=== PATIENT | male | born 1970 | race Caucasian/White ===

== ENCOUNTER 2020-08-01 05:55 | Day surgery (SDC) | payer BC, OTHER ==
[~2020-08-01 05:55] MED LIST: Lactated Ringers 1,000 ML IV SCH; Lidocaine 1%/Sod Bicarbonate in NS 8.4% 1 ML Syringe IDERM PRN; Sodium Chloride 0.9% 10 ML Syringe FLUSH PRN
[2020-08-01] MEDS ORDERED: oxyCODONE ER 10 MG TAB.ER PO SCH (06:00)
[2020-08-01] MEDS ORDERED: Acetaminophen 325 MG Tab PO SCH (06:00)
[2020-08-01] MEDS ORDERED: Morphine 8 MG, EPINEPHrine 0.3 MG, Cefuroxime 750 MG, Ketorolac 30 MG, Sodium Chloride ... PRN ×5 (06:00)
[2020-08-01] MEDS ORDERED: Pregabalin 25 MG Cap PO SCH (06:00)
[2020-08-01] MEDS ORDERED: Bupivacaine 0.25% 10 ML SDV ONE (06:23)
[2020-08-01] MEDS ORDERED: Scopolamine 1.5 MG Transdermal Patch TRDERM SCH (06:45)
--- NOTE | 2020-08-01 06:45 | PCM.PREANE ---
Preanesthetic Assessment - Procedure Proposed Procedure: Right TKA - Anesthesia/Transfusion/Family Hx Anesthesia History: Prior Anesthesia Without Reaction Family History of Anesthesia Reaction: No Transfusion History: No Prior Transfusion(s) - Review of Systems General: No Symptoms Pulmonary: No Symptoms, Other (CPAP) Cardiovascular: Dyspnea on Exertion Gastrointestinal: No Symptoms Neurological: Headache ("not current but suffersm from migraines"), Numbness (hands and feet), Weakness Other: Reports: None - Physical Assessment NPO Status Date: 07/31/20 NPO Status Time: 00:00 Height: 1.8 m Weight: 122.7 kg ASA Class: 3 Mental Status: Alert & Oriented x3 Airway Class: Mallampati = 2 Dentition: Reports: Normal Dentition, Caries Thyro-Mental Finger Breadths: 2 Mouth Opening Finger Breadths: 2 ROM/Head Extension: Full Lungs: Clear to Auscultation, Normal Respiratory Effort Cardiovascular: Regular Rate, Regular Rhythm - Lab Values: Laboratory Last Values MRSA (PCR) Negative 07/14/20 15:24 - Imaging/EKG Impressions: EKG SR rate 63 - Allergies Allergies/Adverse Reactions: Allergies Allergy/AdvReac Type Severity Reaction Status Date / Time nitrile Allergy Burning Verified 07/29/20 14:19 propoxyphene [From Darvon] Allergy Cannot Verified 07/29/20 14:19 Remember Tetracyclines Allergy Hives Verified 07/29/20 14:19 - Anesthesia Plan Pre-Op Medication Ordered: Beta Arabella Beta Arabella: Atenolol Med Last Dose Date: 08/01/20 Med Last Dose Time: 04:35 - Acknowledgements Anesthesia Type Planned: Spinal, Regional Block Pt an Appropriate Candidate for the Planned Anesthesia: Yes Alternatives and Risks of Anesthesia Discussed w Pt/Guardian: Yes Pt/Guardian Understands and Agrees with Anesthesia Plan: Yes PreAnesthesia Questionnaire HEENT History: Reports: Impaired Vision Other HEENT History: wears eyeglasses. 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 Musculoskeletal History: Reports: Fracture, Gout, Other (See Below) Other Musculoskeletal History: RIGHT KNEE PAIN, PLANTAR FASCIAL FIBROMATOSIS, POPLITEAL SPACE SYNOVIAL CYST, JEREZ CYST Neurological History: Reports: Head Trauma, Vertigo Psychiatric History: Reports: Anxiety, Depression, Other (See Below) Other Psychiatric History: EXPRESSIVE LANGUAGE DISORDER Endocrine/Metabolic History: Reports: Obesity/BMI 30+ Hematologic History: Reports: None Immunologic History: Reports: None Oncologic (Cancer) History: Reports: None Dermatologic History: Reports: None - Infectious Disease History Infectious Disease History: Reports: Chicken Pox - Past Surgical History Head Surgeries/Procedures: Reports: None HEENT Surgical History: Reports: Cataract Surgery, Laser Surgery Cardiovascular Surgical History: Reports: None Respiratory Surgical History: Reports: None GI Surgical History: Reports: Cholecystectomy, Colonoscopy, EGD, Hernia Repair/Other Female Surgical History: Reports: None Male Surgical History: Reports: None Endocrine Surgical History: Reports: None Neurological Surgical History: Reports: None Musculoskeletal Surgical History: Reports: None Oncologic Surgical History: Reports: None Dermatological Surgical History: Reports: None - SUBSTANCE USE Tobacco Use Status *Q: Former Tobacco User Second Hand Smoke Exposure: No Days Per Week of Alcohol Use: 1 Number of Drinks Per Day: 1 Total Drinks Per Week: 1 Recreational Drug Use History: No - HOME MEDS Home Medications: Home Meds Acetaminophen [Tylenol Extra Strength] 1,000 mg PO Q6H PRN 07/29/20 [History] Allopurinol [Zyloprim] 200 mg PO DAILY 07/29/20 [History] Cholecalciferol (Vitamin D3) [Vitamin D3] 5,000 unit PO DAILY 07/29/20 [History] Fish Oil/[place]-3 Fatty Acids [Fish Oil 1,000 MG] 1 gm PO DAILY 07/29/20 [History] Gabapentin [Neurontin] 900 mg PO TID 07/29/20 [History] Glucosam/Chondr/Collagn/Hyalur [Glucosamine & Chondroitin Cap] 1 tab PO DAILY 07/29/20 [History] Multivitamin 1 tab PO DAILY 07/29/20 [History] Turmeric Root Extract [Turmeric Curcumin] 1,000 mg PO DAILY 07/29/20 [History] atenoloL [Atenolol] 25 mg PO TID 07/29/20 [History] calcium polycarbophiL [Fiber Tabs] 625 mg PO DAILY 07/29/20 [History] Aspirin [Aspirin EC] 325 mg PO BID #84 tab 08/01/20 [Rx] Cyclobenzaprine [Flexeril] 10 mg PO BID PRN #20 tab 08/01/20 [Rx] oxyCODONE 5 - 10 mg PO Q4H PRN #40 tab 08/01/20 [Rx] - CURRENT (IN HOUSE) MEDS Current Meds: Current Medications Acetaminophen (Tylenol) 975 mg PO ONETIME JULIA Stop: 08/01/20 13:00 Morphine Sulfate 8 mg/Epinephrine HCl 0.3 mg/Cefuroxime Sodium 750 mg/Ketorolac Tromethamine 30 mg/Sodium Chloride 7.9 ml 0 mg .XX ASDIRECTED PRN PRN Reason: Pain Stop: 08/01/20 18:00 Lactated Ringer's (Ringers, Lactated) 1,000 mls @ 125 mls/hr IV ASDIRECTED JULIA Stop: 08/01/20 23:00 Lidocaine/Sodium Bicarbonate (Buffered Lidocaine 1% In Ns 8.4%) 0.25 ml IDERM ONETIME PRN PRN Reason: Prior to IV Start Stop: 08/01/20 18:00 Oxycodone HCl (Oxycontin) 10 mg PO ONETIME JULIA Stop: 08/01/20 13:00 Pregabalin (Lyrica) 50 mg PO ONETIME JULIA Stop: 08/01/20 13:00 Sodium Chloride (Saline Flush) 10 ml FLUSH ASDIRECTED PRN PRN Reason: Keep Vein Open Stop: 08/01/20 18:00 Discontinued Medications Bupivacaine HCl (Sensorcaine-Mpf 0.25%) Confirm Administered Dose 10 ml .ROUTE .STK-MED ONE Stop: 08/01/20 06:24 Tranexamic Acid (Cyklokapron) Confirm Administered Dose 1,000 mg .ROUTE .STK-MED ONE Stop: 08/01/20 06:24 Triamcinolone Acetonide (Kenalog-40) Confirm Administered Dose 80 mg .ROUTE .STK-MED ONE Stop: 08/01/20 06:23 Vancomycin HCl (Vancomycin) Confirm Administered Dose 1 gm .ROUTE .STK-MED ONE Stop: 08/01/20 06:24
[2020-08-01] MEDS ORDERED: Propofol 200 MG/20 ML SDV ONE ×4 (06:52→08:29)
[2020-08-01] MEDS ORDERED: fentaNYL 100 MCG/2 ML SDV ONE (06:52)
[2020-08-01] MEDS ORDERED: Ondansetron 4 MG/2 ML SDV ONE (06:52)
[2020-08-01] MEDS ORDERED: Midazolam 1 MG/ML 2 ML SDV ONE (06:52)
[2020-08-01] MEDS ORDERED: ceFAZolin 1 GM Vial ONE (06:53)
[2020-08-01] MEDS ORDERED: Lidocaine 1% 4 ML ONE (06:53)
[2020-08-01] MEDS ORDERED: Lactated Ringers 1,000 ML ONE (07:39)
[2020-08-01] MEDS ORDERED: Ketorolac 30 MG/ML SDV ONE (08:08)
[2020-08-01] MEDS: Vancomycin 1 GM SDV ONE ×2 (08:14→08:19)
[2020-08-01] MEDS: Triamcinolone Acetonide 40 MG/ML 1 ML SDV ONE ×2 (08:15→08:35)
--- NOTE | 2020-08-01 08:48 | PCM.POSTAN ---
POST ANESTHESIA ASSESSMENT - MENTAL STATUS Mental Status: Alert, Oriented - VITAL SIGNS Vital Signs: Last Vital Signs Temp 36.3 C 08/01/20 06:30 Pulse 80 08/01/20 06:30 Resp 12 08/01/20 06:30 BP 129/81 08/01/20 06:30 Pulse Ox 97 08/01/20 06:30 - RESPIRATORY Respiratory Status: Respiratory Rate WNL, Airway Patent, O2 Saturation Stable, Supplemental Oxygen - CARDIOVASCULAR CV Status: Pulse Rate WNL, Blood Pressure Stable - GASTROINTESTINAL GI Status: No Symptoms - PAIN Pain Score: 0 - POST OP HYDRATION Hydration Status: Adequate & Stable - OBSERVATIONS Free Text/Narrative:: NO ANESTHESIA COMPLICATIONS NOTED
[2020-08-01] MEDS ORDERED: Ropivacaine 0.5% 5 MG/ML 30 ML SDV ONE (08:52)
--- NOTE | 2020-08-01 09:13 | PCM.SN.2 ---
- Free Text/Narrative Note: Right selective femoral nerve block at the adductor canal for post-procedure pain control under US guidance requested by Dr. Ledesma. Time Out: 857 Start: 857 End: 903 Chart reviewed. Consent signed. Questions answered. Appropriate monitors applied. Time out performed. Right mid-shaft femur identified with ultrasound, scanning medially of femur, the femoral artery in the adductor canal visualized, and the femoral nerve located laterally to the artery. The skin was prepped lateral to the ultrasound probe with chlorahexadine times two. The 21ga 4 insulated block needle was inserted under direct ultrasound guidance into the adductor canal. 25mL of 0.5% ropivacaine with 1:200,000 epinephrine was injected circumferentially around the nerve with intermittent negative aspiration noted. Patient tolerated the procedure well. Sterile technique noted along with sterile gloves, mask, and sterile probe cover. See picture on progress note and vital signs on nurses notes. Block completed in PACU. Matt Thomas CRNA
[2020-08-01] MEDS ORDERED: Cyclobenzaprine 10 MG Tab PO ONE (10:00)
[2020-08-01] MEDS: oxyCODONE 5 MG Tab PO PRN ×2 (10:35→10:45)
--- NOTE | 2020-08-01 13:16 | CR ---
Right knee: AP and lateral views of the right knee were obtained. Comparison: Prior right knee CT study of 07/14/20. Right knee prosthesis is noted. Components are aligned. Soft tissue air is noted. No underlying vertebral body anomaly is seen. Patellar prosthesis is also noted. Impression: 1. Satisfactory postop radiographic appearance of recently placed right knee prosthesis. Diagnostic code #2 MTDD
--- NOTE | 2020-08-01 13:31 | PCM48HPAN ---
Post Anesthesia Note - EVALUATION WITHIN 48HRS OF ANESTHETIC Vital Signs in Normal Range: Yes Patient Participated in Evaluation: Yes Respiratory Function Stable: Yes Airway Patent: Yes Cardiovascular Function Stable: Yes Hydration Status Stable: Yes Pain Control Satisfactory: Yes Nausea and Vomiting Control Satisfactory: Yes Mental Status Recovered: Yes Vital Signs: Last Vital Signs Temp 97.5 F 08/01/20 11:37 Pulse 60 08/01/20 11:37 Resp 16 08/01/20 11:37 BP 107/54 L 08/01/20 11:37 Pulse Ox 92 L 08/01/20 11:37 - COMMENTS/OBSERVATIONS Free Text/Narrative:: walking out door. Walking ok, No complaints. Denies nausea- using walker
--- NOTE | 2020-08-07 17:05 | PCM.OPNOTE ---
- General Post-Op/Procedure Note Date of Surgery/Procedure: 08/01/20 Operative Procedure(s): right total knee arthroplasty with earlene robotics and left knee corticosteroid injection Pre Op Diagnosis: bilateral knee osteoarthrosis Post-Op Diagnosis: Same Anesthesia Technique: Local, MAC, Spinal Primary Surgeon: Bear Ledesma Anesthesia Provider: Matt Thomas R&D Lab Technician: Ingris Mahajan R&D Lab Technician: Ofelia Kilgore EBL in mLs: 300 Complications: None Condition: Good Free Text/Narrative:: 10/19 9mm 32x10
--- NOTE | 2020-08-07 18:22 | OR ---
DATE OF OPERATION: 08/01/2020 SURGEON: Bear Ledesma MD OPERATION PERFORMED: Right total knee arthroplasty with Oswald robotics and left knee corticosteroid injection. PREOPERATIVE DIAGNOSIS: Bilateral knee osteoarthrosis. POSTOPERATIVE DIAGNOSIS: Bilateral knee osteoarthrosis. ANESTHESIA: Local MAC with spinal. ANESTHESIA PROVIDER: Matt Thomas CRNA. ASSISTANTS: Ingris Mahajan PA-C and Ofelia Kilgore LPN. ESTIMATED BLOOD LOSS: 300 mL. COMPLICATIONS: None. CONDITION: Stable. IMPLANTS: 1. Shadia size 5 press-fit CR femur. 2. Shadia size 5 press-fit tibial baseplate. 3. Shadia size 5, 9 mm CS polyethylene insert. 4. [place] size 32 x 10 mm press-fit asymmetric patella. DESCRIPTION OF PROCEDURE: The patient was identified in the preoperative holding area. Proper site was marked and identified by the surgeon. The patient was taken back to the operating theater where after adequate anesthesia, the patient's right lower extremity had a nonsterile tourniquet applied and then sterilely prepped and draped in the usual sterile fashion. OR time-out was performed. The patient received 2 g IV Ancef. The right lower extremity had a leg gipson boot applied and then was exsanguinated and tourniquet was insufflated to 250 mmHg. Standard anterior incision was made. This was taken down and a medial parapatellar arthrotomy was created. Deep fibers of the MCL were raised and anterior fat pad was resected. Attention was turned to the patella. Patella measured 24 and resected to a 14 for a 32 x 10 mm patella. Drill holes were then drilled and found to be adequate. At this time, two 4-0 guide pins were placed in the femur inter-incisionally for the Tower Cloud[employer] robotic array on the femoral side, two more were placed on the tibia on the tibial crest, four fingerbreadths below the tibial tubercle. The femoral and tibial array were then aligned and tightened and checkpoints were placed on the femur and tibia. Standard rotation was obtained at the hip the medial lateral malleolus were marked. At this time, 40 points were taken on both the femur and the tibia and found to be adequate points. At this time, the plan was placed on the [place] Oswald robotics. The patient's knee was brought to full extension, then 90 degrees of flexion. Varus/valgus stresses were applied. The patient was noted to have symmetric gap balancing with 19 mm in extension and 20 mm in flexion. Plan was then placed. The Oree robotic arm was brought in with a straight saw blade. The anterior femoral cut as well as tibial cut and anterior chamfer and posterior cuts were completed. Saw blade was then switched and the distal femoral cut as well as put the posterior chamfer cuts were completed. They were found to be adequate resections. All bony fragments were removed. Anterior medial and lateral menisci were removed as well as any posterior osteophytes. Any remaining soft tissue was removed as well. The size 5 tibia was placed under direct visualization in the proper rotation. Size 5 femur was placed. Trial femur was placed. A 9 mm trial poly was placed. The patient's knee was brought to full extension and found to have full extension and full flexion. No signs of liftoff and no instability to varus/valgus stressing. Using the Oree robotics sterile drill holes were then drilled. Tibia was stamped and drilled in proper rotation. All trial implants were removed. Size 5 femur was impacted in place and the 9 mm CS polyethylene insert was impacted in place. The patient's knee was brought into full extension, 32 x 10 mm press-fit patella was pressed into place. Tourniquet was deflated. Bleeders were cauterized. A 450 mL of Irrisept irrigation was irrigated through the knee along with 1 L pulse lavage irrigation with Ancef. Periarticular injection was completed as well as Marcaine subcutaneously. Topical tranexamic acid and vancomycin powder were applied intra-articularly. A #2 barbed suture used for closure of the IT band and gluteal fascia, 2-0 Vicryl was used subcutaneously as well as StrataFix and Prineo was applied. We did make sure to remove all checkpoints and pins and arrays. The patient had a sterile soft dressing applied, and after this was completed, under sterile technique, 2 mL of 40 mg Kenalog and 4 mL 0.25% Marcaine was injected to the left knee. The patient tolerated the procedure well. MMODAL /[id number]
== END 2020-08-01 13:30 | disposition home or self-care (01) ==
LOC: JD.SDS 05:55
PROVIDERS: ATTEND Orthopaedic Surgery
DX: M17.0 Bilateral primary osteoarthritis of knee (principal); G47.33 Obstructive sleep apnea (adult) (pediatric); M10.9 Gout, unspecified; K57.92 Diverticulitis of intestine, part unspecified, without perforation or abscess without bleeding; Z88.1 Allergy status to other antibiotic agents; E66.9 Obesity, unspecified; K21.9 Gastro-esophageal reflux disease without esophagitis; Z88.0 Allergy status to penicillin; Z79.899 Other long term (current) drug therapy; Z98.890 Other specified postprocedural states; Z87.891 Personal history of nicotine dependence; Z68.38 Body mass index [BMI] 38.0-38.9, adult; Z01.812 Encounter for preprocedural laboratory examination; Z20.822 Contact with and (suspected) exposure to COVID-19
CPT/HCPCS: 01402; 64450; 73560-26-RT; 73560-RT; 87641; 97110-GP; 97116-GP; 97161-GP; 97165-GO; A9270-GY; C1713; C1776; J0171; J0690; J0697; J1885; J2250; J2270; J2370; J2405; J2704; J2795; J3010; J3301; J3370; J3490; J7120

== ENCOUNTER 2020-11-28 08:44 | Day surgery (SDC) | payer BC, OTHER ==
[~2020-11-28 08:44] MED LIST changes: +Acetaminophen 325 MG Tab PO SCH; +Albuterol 0.083% 2.5 MG/3 ML Neb Soln NEB PRN; +EPINEPHrine 1 MG/ML SDV ONE; +Pregabalin 25 MG Cap PO SCH; +Ropivacaine 0.5% 5 MG/ML 30 ML SDV ONE; +oxyCODONE ER 10 MG TAB.ER PO SCH
--- NOTE | 2020-11-28 09:09 | PCM.PREANE ---
Preanesthetic Assessment - Procedure Proposed Procedure: Left Total Knee Arthroplasty - Anesthesia/Transfusion/Family Hx Anesthesia History: Prior Anesthesia Reaction Type of Anesthesia Reaction: Other (see below) (slow emergence, night terrors and inability for 5 days post operatively.) Family History of Anesthesia Reaction: No Transfusion History: No Prior Transfusion(s) Intubation History: Unknown - Review of Systems General: No Symptoms Pulmonary: No Symptoms (WARREN-CPAP, ETOH: 1-2 beers weekly, chewing tobacco: last used in August) Cardiovascular: Chest Pain (Noted by patient since the starting of atenolol; 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 (Noted when atenolol is not taken on time.)), Palpi tations, Dyspnea on Exertion (deconditioned.), Lightheadedness (Positonal changes.) Gastrointestinal: No Symptoms (GERD) Neurological: No Symptoms (History of head egbgbj-jplijiz-Fhyoycuenw language disorder/chronic lower back pain.), Headache (History of migraines), Tingling (Hands and feet), Gait Disturbance Other: Reports: Liver Problems (Elevated liver enzymes/Enlarged liver), Depression, Anxiety - Physical Assessment NPO Status Date: 11/27/20 NPO Status Time: 21:30 Vital Signs: HR: 69 Sat: 100% Temp: 97.8 Resp: 18 B/P: 120/85 Height: 1.8 m Weight: 122 kg ASA Class: 3 Mental Status: Alert & Oriented x3 Airway Class: Mallampati = 2 Dentition: Reports: Normal Dentition, Caries Thyro-Mental Finger Breadths: 3 Mouth Opening Finger Breadths: 3 ROM/Head Extension: Full Lungs: Clear to Auscultation, Normal Respiratory Effort Cardiovascular: Regular Rate, Regular Rhythm, No Murmurs - Lab Values: All labs reviewed and noted and within acceptable ranges to proceed with scheduled procedure. Elevated liver enzymes noted. - Imaging/EKG Impressions: EKG:SR rate=69, borderline LAD, borderline T wave abnormalities, inferior leads CXR: degenerative changes of the spine 07/2020: negative stress test - Allergies Allergies/Adverse Reactions: Allergies Allergy/AdvReac Type Severity Reaction Status Date / Time milk Allergy Cannot Verified 11/25/20 12:39 Remember nitrile Allergy Burning Verified 11/25/20 12:39 propoxyphene [From Darvon] Allergy Cannot Verified 11/25/20 12:39 Remember Tetracyclines Allergy Hives Verified 11/25/20 12:39 - Anesthesia Plan Pre-Op Medication Ordered: Beta Arabella, Other (Preoperative meds: all p.o.(lyrica, tylenol, oxycontin): 0907) Beta Arabella: Atenolol Med Last Dose Date: 11/28/20 Med Last Dose Time: 07:30 - Acknowledgements Anesthesia Type Planned: Spinal (Left Adductor Canal Block under US guidance for post operative pain control requested by Dr. Ledesma.) Pt an Appropriate Candidate for the Planned Anesthesia: Yes Alternatives and Risks of Anesthesia Discussed w Pt/Guardian: Yes Pt/Guardian Understands and Agrees with Anesthesia Plan: Yes PreAnesthesia Questionnaire HEENT History: Reports: Impaired Vision Other HEENT History: wears eyeglasses, vision changes Cardiovascular History: Reports: Other (See Below) Other Cardiovascular History: PALPITATIONS Respiratory History: Reports: Sleep Apnea Gastrointestinal History: Reports: Diverticulosis, GERD, Other (See Below) Other Gastrointestinal History: ELEVATED LFTS, ABDOMINAL PAIN, GASTRITIS Genitourinary History: Reports: Other (See Below) 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 Musculoskeletal History: Reports: Fracture, Gout, Osteoarthritis Other Musculoskeletal History: RIGHT KNEE PAIN, PLANTAR FASCIAL FIBROMATOSIS, POPLITEAL SPACE SYNOVIAL CYST, JEREZ CYST Neurological History: Reports: Headaches, Chronic, Head Trauma, Vertigo Psychiatric History: Reports: Anxiety, Depression, Other (See Below) Other Psychiatric History: EXPRESSIVE LANGUAGE DISORDER Endocrine/Metabolic History: Reports: Obesity/BMI 30+ Hematologic History: Reports: None Immunologic History: Reports: None Oncologic (Cancer) History: Reports: None Dermatologic History: Reports: None - Infectious Disease History Infectious Disease History: Reports: None - Past Surgical History Head Surgeries/Procedures: Reports: None HEENT Surgical History: Reports: Cataract Surgery, Laser Surgery Cardiovascular Surgical History: Reports: None Respiratory Surgical History: Reports: None GI Surgical History: Reports: Cholecystectomy, Colonoscopy, EGD, Other (See Below) Other GI Surgeries/Procedures: hemorrhoid surgery Female Surgical History: Reports: None Male Surgical History: Reports: None Endocrine Surgical History: Reports: None Neurological Surgical History: Reports: None Musculoskeletal Surgical History: Reports: Knee Replacement Oncologic Surgical History: Reports: None Dermatological Surgical History: Reports: None - SUBSTANCE USE Tobacco Use Status *Q: Former Tobacco User Tobacco Use Within Last Twelve Months: Smokeless Tobacco, Snuff/Dip Days Per Week of Alcohol Use: 1 Number of Drinks Per Day: 2 Total Drinks Per Week: 2 Recreational Drug Use History: No - HOME MEDS Home Medications: Home Meds Acetaminophen [Tylenol Extra Strength] 1,000 mg PO Q6H PRN 07/29/20 [History] Cholecalciferol (Vitamin D3) [Vitamin D3] 5,000 unit PO DAILY 07/29/20 [History] Fish Oil/[place]-3 Fatty Acids [Fish Oil 1,000 MG] 1 gm PO DAILY 07/29/20 [History] Gabapentin [Neurontin] 600 mg PO TID 07/29/20 [History] Glucosam/Chondr/Collagn/Hyalur [Glucosamine & Chondroitin Cap] 1 tab PO DAILY 07/29/20 [History] Multivitamin 1 tab PO DAILY 07/29/20 [History] Turmeric Root Extract [Turmeric Curcumin] 1,000 mg PO DAILY 07/29/20 [History] atenoloL [Atenolol] 25 mg PO TID 07/29/20 [History] calcium polycarbophiL [Fiber Tabs] 625 mg PO DAILY 07/29/20 [History] Iron Polysaccharides Complex [Ferrex 150] 150 mg PO DAILY 11/25/20 [History] allopurinoL [Zyloprim] 300 mg PO DAILY 11/25/20 [History] Aspirin [Aspirin EC] 325 mg PO BID #84 tab 11/28/20 [Rx] Cyclobenzaprine [Flexeril] 10 mg PO BID PRN #20 tab 11/28/20 [Rx] oxyCODONE 5 - 10 mg PO Q4H PRN #40 tab 11/28/20 [Rx] - CURRENT (IN HOUSE) MEDS Current Meds: Current Medications Acetaminophen (Acetaminophen 325 Mg Tab) 975 mg PO ONETIME JULIA Stop: 11/28/20 13:00 Albuterol (Albuterol 0.083% 2.5 Mg/3 Ml Neb Soln) 2.5 mg NEB ONETIME PRN PRN Reason: bronchodilation Stop: 11/28/20 16:00 Morphine Sulfate 8 mg/Epinephrine HCl 0.3 mg/Cefuroxime Sodium 750 mg/Ketorolac Tromethamine 30 mg/Sodium Chloride 7.9 ml 0 mg .XX ASDIRECTED PRN PRN Reason: Pain Stop: 11/28/20 16:00 Lactated Ringer's (Ringers, Lactated) 1,000 mls @ 125 mls/hr IV ASDIRECTED JULIA Stop: 11/28/20 23:00 Lidocaine/Sodium Bicarbonate (Lidocaine 1%/Sod Bicarbonate In Ns 8.4% 1 Ml Syringe) 0.25 ml IDERM ONETIME PRN PRN Reason: Prior to IV Start Stop: 11/28/20 18:00 Oxycodone HCl (Oxycodone Er 10 Mg Tab.Er) 10 mg PO ONETIME JULIA Stop: 11/28/20 13:00 Pregabalin (Pregabalin 25 Mg Cap) 50 mg PO ONETIME JULIA Stop: 11/28/20 13:00 Sodium Chloride (Sodium Chloride 0.9% 10 Ml Syringe) 10 ml FLUSH ASDIRECTED PRN PRN Reason: Keep Vein Open Stop: 11/28/20 18:00 Discontinued Medications Epinephrine HCl (Epinephrine 1 Mg/Ml Sdv) Confirm Administered Dose 1 mg .ROUTE .STK-MED ONE Stop: 11/28/20 07:46 Ropivacaine (Ropivacaine 0.5% 5 Mg/Ml 30 Ml Sdv) Confirm Administered Dose 30 ml .ROUTE .STK-MED ONE Stop: 11/28/20 07:46
[2020-11-28] MEDS ORDERED: Scopolamine 1.5 MG Transdermal Patch TRDERM PRN (09:35)
[2020-11-28] MEDS ORDERED: Ondansetron 4 MG/2 ML SDV ONE (10:18)
[2020-11-28] MEDS ORDERED: Propofol 200 MG/20 ML SDV ONE ×5 (10:19→12:12)
[2020-11-28] MEDS ORDERED: ceFAZolin 1 GM Vial ONE (10:20)
[2020-11-28] MEDS ORDERED: Lidocaine 1% 4 ML ONE (10:20)
[2020-11-28] MEDS ORDERED: Lactated Ringers 1,000 ML ONE ×2 (10:28→11:29)
[2020-11-28] MEDS ORDERED: ePHEDrine 50 MG/ML SDV ONE (11:54)
[2020-11-28] MEDS: Vancomycin 1 GM SDV ONE ×2 (12:01→12:34)
[2020-11-28] MEDS: Morphine 8 MG, EPINEPHrine 0.3 MG, Cefuroxime 750 MG, Ketorolac 30 MG, Sodium Chloride ... PRN ×10 (12:02→12:24)
[2020-11-28] MEDS ORDERED: HYDROmorphone 0.5 MG/0.5 ML Syringe IVPUSH PRN (12:20)
[2020-11-28] MEDS ORDERED: Ondansetron 4 MG/2 ML SDV IVPUSH PRN (12:20)
[2020-11-28] MEDS ORDERED: fentaNYL 100 MCG/2 ML SDV IVPUSH PRN (12:20)
--- NOTE | 2020-11-28 13:07 | PCM.POSTAN ---
POST ANESTHESIA ASSESSMENT - MENTAL STATUS Mental Status: Alert, Oriented - VITAL SIGNS Vital Signs: Last Vital Signs Temp 97.9 F 11/28/20 08:55 Pulse 69 11/28/20 08:55 Resp 18 11/28/20 08:55 BP 120/85 11/28/20 08:55 Pulse Ox 100 11/28/20 08:55 1258 126/67 86 21 98.6 99% - RESPIRATORY Respiratory Status: Respiratory Rate WNL, Airway Patent, O2 Saturation Stable, Supplemental Oxygen - CARDIOVASCULAR CV Status: Pulse Rate WNL, Blood Pressure Stable - GASTROINTESTINAL GI Status: No Symptoms - PAIN Pain Score: 0 - POST OP HYDRATION Hydration Status: Adequate & Stable
--- NOTE | 2020-11-28 13:27 | PCM.SN.2 ---
- Free Text/Narrative Note: Left selective femoral nerve block at the adductor canal for post-procedure pain control under US guidance requested by Dr. Ledesma. Date: 11/28/2020 Time Out: 1313 Start: 1313 End: 131 Chart reviewed. Consent signed. Questions answered. Appropriate monitors applied. Time out performed. Left mid-shaft femur identified with ultrasound, scanning medially of femur, the femoral artery in the adductor canal visualized, and the femoral nerve located laterally to the artery. The skin was prepped lateral to the ultrasound probe with chlorahexadine times two. The 21ga 4 insulated block needle was inserted under direct ultrasound guidance into the adductor canal. 25mL of 0.5% ropivacaine with 1:200,000 epinephrine was injected circumferentially around the nerve with intermittent negative aspiration noted. Patient tolerated the procedure well. Sterile technique noted along with sterile gloves, mask, and sterile probe cover. See picture on progress note and vital signs on nurses notes. Block completed in PACU. Christy Lima CRNA
[2020-11-28] MEDS ORDERED: oxyCODONE 5 MG Tab PO PRN (13:31)
[2020-11-28] MEDS ORDERED: Cyclobenzaprine 10 MG Tab PO ONE (13:31)
--- NOTE | 2020-11-28 14:15 | CR ---
Left knee: Portable AP and lateral views of the left knee were obtained. Comparison: Prior left knee CT study of 11/16/20. Knee prosthesis is noted. Patellar prosthesis is seen. Prostheses appear normal in alignment. Underlying bony structures are intact. Soft tissue air is noted. No underlying bony abnormality is otherwise seen. Impression: 1. Satisfactory postop radiographic appearance of recently placed left knee prostheses. Diagnostic code #2
--- NOTE | 2020-11-28 14:27 | PCM48HPAN ---
Post Anesthesia Note - EVALUATION WITHIN 48HRS OF ANESTHETIC Vital Signs in Normal Range: Yes Patient Participated in Evaluation: Yes Respiratory Function Stable: Yes Airway Patent: Yes Cardiovascular Function Stable: Yes Hydration Status Stable: Yes Pain Control Satisfactory: Yes Nausea and Vomiting Control Satisfactory: Yes Mental Status Recovered: Yes Vital Signs: Last Vital Signs Temp 99.0 F 11/28/20 14:00 Pulse 81 11/28/20 14:00 Resp 18 11/28/20 14:00 BP 121/78 11/28/20 14:00 Pulse Ox 98 11/28/20 14:00
--- NOTE | 2020-12-13 14:59 | PCM.OPNOTE ---
- General Post-Op/Procedure Note Date of Surgery/Procedure: 11/28/20 Operative Procedure(s): left total knee arthroplasty with [employer] robot[employer] Pre Op Diagnosis: left knee osteoarthrosis Post-Op Diagnosis: Same Anesthesia Technique: Local, MAC, Spinal Primary Surgeon: Bear Ledesma Anesthesia Provider: Christy Lima Assembly Riveter: Ingris Mahajan Assembly Riveter: Oeflia Kilgore EBL in mLs: 200 Complications: None Condition: Good Free Text/Narrative:: / 9mm 32x10
--- NOTE | 2020-12-14 07:40 | OR ---
DATE OF OPERATION: 11/28/2020 SURGEON: Bear Ledesma MD OPERATION PERFORMED: Left total knee arthroplasty with [employer] [place] [employer] robot[employer]. PREOPERATIVE DIAGNOSIS: Left knee osteoarthrosis. POSTOPERATIVE DIAGNOSIS: Left knee osteoarthrosis. ANESTHESIA: Local MAC with spinal. ANESTHESIA PROVIDER: Christy Lima CRNA. MACHINE OPERATOR HELPER: Ingris Mahajan PA-C and Ofelia Kilgore LPN. ESTIMATED BLOOD LOSS: 200 mL. COMPLICATIONS: None. CONDITION: Stable. IMPLANT: 1. Shadia size 4 press-fit CR femur. 2. Shadia size 4 press-fit tibial baseplate. 3. Shadia size 4, 9 mm CS polyethylene insert. 4. Shadia size 32 x 10 mm press-fit asymmetric patella. DESCRIPTION OF PROCEDURE: The patient was identified in the preoperative holding area. Proper site was marked identified by the surgeon. The patient was taken back to the operating theater, where after adequate anesthesia, the patient's left lower extremity had nonsterile tourniquet applied and was sterilely prepped and draped in the usual sterile fashion. OR time-out was performed. The patient received 2 g IV Ancef. Leg gipson was then applied to the left lower extremity. The left lower extremity was exsanguinated. Tourniquet was insufflated to 250 mmHg. Standard anterior incision was made and medial parapatellar arthrotomy was created. Deep fibers of the MCL were raised and anterior fat pad was resected. Attention was turned to the patella. Patella measured a 24 and it was resected to a 14 for a 32 x 10 mm patella. At this time, two 4.0 Schanz pins were placed intra- incisionally on the femur and 2 more were placed on the tibia for the Shadia Oswald robotic arrays. Checkpoints were placed on the femur and the tibia. Hip center rotation was obtained as well as medial and lateral malleoli marked as well as checkpoints marked. At this time, 40 points were obtained from both the femur and the tibia for the Shadia Oswald robotic plan. The patient's knee was then brought into full extension. Varus and valgus stresses were applied and then brought into flexion, where again varus and valgus stresses were applied. [place] [employer] robotic plan was made for this patient with 19 mm gaps in flexion and extension. The trial was brought in, the tibial cut was completed as well as the anterior femoral cut, the anterior chamfer cut, and the posterior femoral cut. Saw blade was then switched. The distal femoral cut and posterior chamfer cut were then completed and found to be adequate. All bony fragments were removed. The medial and lateral meniscus were resected. Posterior osteophytes were removed. At this time, size 4 trial tibial baseplate was placed, size 4 trial femur was placed, and a size 4, 9 mm trial polyethylene was placed. The patient's knee was brought to full extension. He had full extension and flexion. No signs of liftoff on the poly and patella was tracking centrally. At this time, the [employer] robotic arrays and checkpoints were removed. The size 4 tibia was impacted into place, size 4 femur was impacted into place, and a 9 mm CS polyethylene insert was impacted into place. A 32 x 10 mm press-fit patella was press-fit in at this time. Tourniquet was deflated. Bleeders were cauterized. 1 L pulse lavage irrigation with Ancef was irrigated through the knee along with 400 mL of IrriSept irrigation. Topical tranexamic acid and vancomycin powder along with periarticular injection was completed. A #2 barbed suture was used for closure of the medial parapatellar arthrotomy, 2-0 Vicryl Stratafix was used for subcutaneous closure, and Prineo was used for skin closure. The patient tolerated the procedure well and was sent to PACU in stable condition. GENOVEVA /[id number]
== END 2020-11-28 15:54 | disposition home or self-care (01) ==
LOC: JD.SDS 08:44
PROVIDERS: ATTEND Orthopaedic Surgery
DX: M17.12 Unilateral primary osteoarthritis, left knee (principal); G47.33 Obstructive sleep apnea (adult) (pediatric); E66.01 Morbid (severe) obesity due to excess calories; M10.9 Gout, unspecified; G89.18 Other acute postprocedural pain; Z88.8 Allergy status to other drugs, medicaments and biological substances; Z68.36 Body mass index [BMI] 36.0-36.9, adult; Z91.011 Allergy to milk products; Z79.82 Long term (current) use of aspirin
CPT/HCPCS: 27447; 73560; 87641; 97116; 97161; 97165; A9270; C1713; C1776; J0171; J0690; J0697; J1885; J2270; J2370; J2405; J2704; J2795; J3370; J7120; 01402; 64450; 76942; 87070